=== PATIENT | female | born 1975 | race Caucasian/White ===

== ENCOUNTER 2020-05-02 02:25 | Emergency (ER) | payer BC ==
--- NOTE | 2020-05-02 02:51 | EDM.PDOC ---
ED HPI GENERAL MEDICAL PROBLEM - General Chief Complaint: Lower Extremity Injury/Pain Stated Complaint: knee injury Time Seen by Provider: 05/02/20 02:43 Source of Information: Reports: Patient History Limitations: Reports: No Limitations - History of Present Illness INITIAL COMMENTS - FREE TEXT/NARRATIVE: Presents emergency room for chief complaint of right knee pain secondary from injury which occurred this prev. afternoon. Patient was lifting up a heavy couch into the house, she needed to lift it up a little bit higher, therefore she took the front of her knee and help boost the couch fire however she felt immediate pain and felt like she dislocated her kneecap partially and reduce itself after she dropped the couch. She has had moderate to severe pain to her right kneecap along the lateral aspect of her knee joint. No posterior knee pain. No other injury occurred. Patient denies any upper or lower leg pain. She took ibuprofen Tylenol has been icing twice a day her last dose of Tylenol was 3 hours ago. Pain is worse when she bends her knee. She denies any previous injuries or surgeries to that knee. - Related Data Allergies Allergy/AdvReac Type Severity Reaction Status Date / Time amoxicillin Allergy Hives Verified 05/02/20 02:39 Home Meds: Home Meds . [No Known Home Meds] 05/02/20 [History] Review of Systems - Review of Systems Review Of Systems: Comprehensive ROS is negative, except as noted in HPI. ED EXAM, GENERAL - Physical Exam Exam: See Below Exam Limited By: No Limitations General Appearance: Alert, WD/WN, No Apparent Distress Extremities: Normal Capillary Refill, Other (Right anterior patella tenderness and tenderness on the lateral aspect of the right knee. No instability. Normal alignment. No signs of dislocation of the patella. No erythremia noted. There is some mild swelling to the right knee. No crepitus appreciated. Distal neurovascular intact.). No: Eliza's Sign, Leg Pain Neurological: Alert, Oriented Psychiatric: Normal Affect, Normal Mood Skin Exam: Warm, Dry, Intact Course - Vital Signs Last Recorded V/S: Last Vital Signs Temp 99.5 F 05/02/20 02:40 Pulse 80 05/02/20 02:40 Resp 18 05/02/20 02:40 BP 124/76 05/02/20 02:40 Pulse Ox 97 05/02/20 02:40 - Orders/Labs/Meds Orders: Active Orders 24 hr Category Date Time Status Knee 1V or 2V Rt [CR] Stat Exams 05/02/20 02:32 Ordered - Re-Assessments/Exams Free Text/Narrative Re-Assessment/Exam: 05/02/20 02:56 Ice applied elevated with a pillow x-ray ordered. Dose of Tylenol was given for the pain. This is not a DVT. this is a musculoskeletal injury to her right patella. No signs of acute fracture. Crutches given instructions provided patient demonstrated proper use of crutches, crutches to help her perform ADLs at home. Departure - Departure Time of Disposition: 03:14 Disposition: Home, Self-Care 01 Condition: Good Clinical Impression: Pain of right patella - Discharge Information *PRESCRIPTION DRUG MONITORING PROGRAM REVIEWED*: No *COPY OF PRESCRIPTION DRUG MONITORING REPORT IN PATIENT MICKEY: No Instructions: Acute Knee Pain, Adult, Knee Sprain, Adult, [id number] Forms: ED Department Discharge Additional Instructions: f/u with orthopedics in [place] for re check this next week, use crutches, ice and elevated, sherie wrap the knee as well, avoid having it tight directly behind the knee. OTC pain medications as needed. Sepsis Event Note (ED) - Focused Exam Vital Signs: Vital Signs Temp Pulse Resp BP Pulse Ox 05/02/20 02:40 99.5 F 80 18 124/76 97 - My Orders Last 24 Hours: My Active Orders 05/02/20 02:32 Knee 1V or 2V Rt [CR] Stat - Assessment/Plan Last 24 Hours: My Active Orders 05/02/20 02:32 Knee 1V or 2V Rt [CR] Stat
[2020-05-02] MEDS ORDERED: Acetaminophen/HYDROcodone 325-10 MG Tab PO ONE (03:18)
--- NOTE | 2020-05-02 09:54 | CR ---
[id number] RAD/RAD Knee Right 3V EXAM: 3 VIEWS RIGHT KNEE INDICATION: INJURY COMPARISON: None. DISCUSSION: No fracture, dislocation or other acute osseous abnormality. Mild tricompartmental osteoarthritis of the right knee. Trace right knee joint effusion. IMPRESSION: 1. Tricompartmental osteoarthritis of the right knee. Beka Moy DO 05/02/20 [id number] Thank you for allowing us to participate in the care of your patient.
== END 2020-05-02 03:30 | disposition home or self-care (01) ==
LOC: KA.ED 02:25
DX: M25.561 Pain in right knee (principal); Z88.0 Allergy status to penicillin
CPT/HCPCS: 73562-RT; 99283; 99283-25; A9270-GY